=== PATIENT | male | born 1990 | race Caucasian/White ===

== ENCOUNTER 2021-01-24 14:13 | Emergency (ER) | payer SELFPAY ==
[2021-01-24 14:49] VITALS: BP 115/72; PULSE 81; RESP 17; TEMP 36.8; O2SAT 95; BMI 31.2
--- NOTE | 2021-01-24 16:15 | ED_ITS ---
HPI - Back Pain/Injury General: Chief Complaint: Back Pain/Injury Stated Complaint: BACK PAIN WITH SPASM DOWN LEGS Time Seen by Provider: 01/24/21 14:58 History of Present Illness: HPI Narrative: Patient with longstanding history of back pain per. Patient had back pain this time for greater than 4 weeks and been off work. Patient states he is having spasms when he walks. Hurts to get up and out of chair. MD elicited complaint: back pain Pertinent past history: prior back pain Onset (ago): week(s) Timing: constant Severity: moderate Similar Symptoms Previously: Yes Quality: aching Location: lumbar spine Radiation: buttocks Exacerbating factors: movement, sitting upright and lifting Relieving factors: immobilization Context: while lifting, turning/twisting and bending Associated symptoms: Reports no associated symptoms; Deny abdominal pain, chills, fever(s), nausea or vomiting Treatments prior to arrival: NSAIDS Review of Systems Const: Denies: fever(s), chills or body aches Eyes: Denies: change in vision or blurry vision ENMT: Denies: throat pain or nasal congestion Card: Denies: chest pain or dyspnea on exertion Resp: Denies: dyspnea, productive cough or non-productive cough GI: Denies: abdominal pain, nausea or vomiting : Denies: difficulty urinating Musc: Reports: back pain, limited range of motion and muscle cramps; Denies: extremity pain Skin/Breast: Denies: rash Neuro: Denies: headache(s) Psych: Denies: anxiety or depression Kingsley/Lymph: Denies: easy bruising Physical Exam Const: COMMON NORMALS: no acute distress, average body habitus and patient oriented x3 HENMT: COMMON NORMALS: normocephalic HEAD & SCALP: normal to inspection and normocephalic FACE & SINUS: normal facial exam Eye: COMMON NORMALS: conjunctivae normal GENERAL EYE: appearance normal, both eyes and all related structures CONJUNCTIVA: Yes conjunctivae normal Neck/C-Spine: COMMON NORMALS: no JVD Chest: COMMONS NORMALS: normal inspection of the chest Resp: COMMON NORMALS: normal respiratory effort Cardio: COMMON NORMALS: no JVD, regular rate and regular rhythm RATE: regular rate RHYTHM: regular rhythm GI: COMMON NORMALS: Normal to inspection, nondistended, normoactive bowel sounds present Back/Pelvis: LUMBAR SPINE/LOWER BACK: Yes normal to inspection, Yes lumbar ROM normal, No lumbar spinal tenderness, Yes paraspinal muscle tenderness, Yes straight leg raise positive right and Yes straight leg raise positive left Extremity: COMMON NORMALS: normal to inspection and full ROM Neuro: COMMON NORMALS: patient oriented x3, moves all extremities, no focal motor deficits and no sensory deficits noted Course Vital Signs: Vital signs: Vital Signs Temperature 98.2 F 01/24/21 14:49 Pulse Rate 81 01/24/21 14:49 Respiratory Rate 17 01/24/21 14:49 Blood Pressure 115/72 01/24/21 14:49 Pulse Oximetry 95 01/24/21 14:49 MDM - Back Pain/Injury MDM Narrative: Medical decision making narrative: Most likely bulging lumbar disc, sciatica, lumbar radiculopathy. Patient encouraged follow-up primary care provider seek out possible MRI if no significant provement symptoms. 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
[2021-01-24] MEDS: methylPREDNISolone (DEPO) 80 MG/ML INJ 1 mL IM (16:20)
[2021-01-24] MEDS: ketorolac 60 mg/2 mL INJ IM (16:20)
[2021-01-24 17:26] VITALS: BP 142/79; PULSE 78; RESP 18; O2SAT 96
== END 2021-01-24 17:27 | disposition home or self-care (01) ==
PROVIDERS: Emergency Provider Nurse Practitioner Family; PCP Nurse Practitioner
DX: M54.16 Radiculopathy, lumbar region (principal)
CPT/HCPCS: 96372; 99283; J1040; J1885

== ENCOUNTER 2023-07-11 13:34 | Outpatient (CLI) | payer MEDICAID, SELFPAY ==
--- NOTE | 2023-07-11 13:39 | MR_ITS ---
WS: [id number] MRI LUMBAR SPINE WITH CONTRAST TECHNIQUE: Sagittal T1, T2 and STIR imaging. Axial T1 and T2 imaging. Post gadolinium imaging was obt ained. CLINICAL INFORMATION: M54.16 - Radiculopathy, lumbar region COMPARISON: MRI 2006 FINDINGS: Mild lumbar curve. No acute compression. Degenerative disc disease with endplate degenerative changes worse at L3-L4 L4-L5. Small disc herniations L3-L4 L4-L5. A few tiny disc protrusions in the cervica l spine on reproduction order processor imaging at C4-C5 and C5-C6. L1-L2: Mild annular bulging. Moderate facet arthropathy. Spinal canal and foramen are patent. L2-L3: Mild annular bulging with a shallow LEFT paracentral protrusion. Mild central canal stenosis. Impingement traversing LEFT L3 nerve root in the subarticular recess. Moderate facet arthropathy. Sma ll annular fissure. Mild LEFT and no significant RIGHT foraminal narrowing. L3-L4: Mild annular bulging with a shallow central protrusion. Mild central canal stenosis. Impingeme nt traversing L4 nerve roots bilaterally. Moderate facet arthropathy. Mild bilateral foraminal narrow ing. L4-L5: RIGHT paracentral disc protrusion with slight inferior herniation of disc material. Impingemen t traversing RIGHT L5 nerve root in the subarticular recess. Mild central canal stenosis. Foramen are patent. Moderate facet arthropathy. L5-S1: L5 is partially sacralized. No significant disc bulging. Mild to moderate facet arthropathy. T iny LEFT eccentric annular fissure. Spinal canal and foramen are patent. Visualized pelvic bony structures: Normal. Paravertebral soft tissues: Normal. No abnormal gadolinium enhancement. IMPRESSION: 1. Mild lumbar curve. No acute compression. L5 is partially sacralized. 2. RIGHT paracentral disc protrusion L4-5 with slight inferior disc herniation. Impingement traversi ng RIGHT L5 nerve root in the subarticular recess. Mild central canal stenosis. 3. Central disc protrusion L3-4 with slight inferior herniation of disc material. Impingement mansoor sing L4 nerve roots bilaterally with mild central canal stenosis. 4. LEFT subarticular protrusion L2-3 impinges the traversing LEFT L3 nerve root with mild LEFT ivania inal narrowing. Small annular fissure at this level. 5. Moderate facet arthropathy L2-L4.
[2023-07-11] MEDS: gadobenate dimeglumine 20 mL vial IV (14:16)
== END 2023-07-11 13:35 | disposition home or self-care (01) ==
LOC: RAD 13:35
PROVIDERS: PCP Family Medicine; Visit Provider Family Medicine
DX: M51.16 Intervertebral disc disorders with radiculopathy, lumbar region (principal)
CPT/HCPCS: 72158; A9577

== ENCOUNTER → 2023-08-05 14:29 | Outpatient (BNVA) | payer MEDICAID, SELFPAY | PROVIDERS: PCP Family Medicine; Visit Provider Orthopaedic Surgery | DX: M54.9 Dorsalgia, unspecified (principal); M48.062 Spinal stenosis, lumbar region with neurogenic claudication | CPT/HCPCS: 36415; 72100; 80053; 81001; 85025 ==

== ENCOUNTER → 2023-08-12 14:29 | Outpatient (BNVA) | payer MEDICAID, SELFPAY | PROVIDERS: PCP Family Medicine; Visit Provider Family Medicine | DX: Z01.818 Encounter for other preprocedural examination (principal) | CPT/HCPCS: 81003; 87086 ==

== ENCOUNTER 2023-08-19 08:24 | Emergency (ER) | payer MEDICAID, SELFPAY ==
[2023-08-19 08:37] VITALS: BP 146/87; PULSE 85; RESP 20; TEMP 36.7; O2SAT 95
[2023-08-19 08:45] VITALS: BP 137/91; PULSE 87; RESP 16; O2SAT 92
--- NOTE | 2023-08-19 09:04 | ED_ITS ---
HPI - Back Pain/Injury General: Chief Complaint: Back Pain/Injury Stated Complaint: back pain Time Seen by Provider: 08/19/23 08:25 Source: patient Mode of arrival: ambulatory Limitations: no limitations History of Present Illness: Patient is a 33-year-old male here for complaints of acute on chronic back pain. Patient states he has had back pain for many many years. He has recently seen Dr. Cisneros through pain management and failed injections. He has not with Dr. Givens and plan is for surgery next Friday. Patient states 3 days ago he was mowing the yard and afterwards felt like he had aggravated his chronic back pain. He states he takes gabapentin and meloxicam daily but these are not controlling his symptoms. Pain is radiating down both legs but mainly his right side which he states is chronic. He had an MRI of his lumbar spine last month which showed: 1. Mild lumbar curve. No acute compress ion. L5 is partially sacralized. 2. RIGHT paracentral disc protrusion L4 -5 with slight inferior disc herniation. Impingement traversing RIGHT L5 nerve root in the subarticular recess. Mild central canal stenosis. 3. Central disc protrusion L3-4 with sl ight inferior herniation of disc material. Impingement traversing L4 nerve roots bilaterally with mild central canal stenosis. 4. LEFT subarticular protrusion L2-3 im pinges the traversing LEFT L3 nerve root with mild LEFT foraminal narrowing. Small annular fissure at this level. 5. Moderate facet arthropathy L2-L4. MD elicited complaint: back pain Pertinent past history: prior back pain Onset (ago): year(s) Timing: constant Severity: severe Similar Symptoms Previously: Yes Location: lumbar spine Radiation: right leg below the knee Exacerbating factors: movement and walking Relieving factors: none Context: other (after mowing yard) Associated symptoms: Reports difficulty walking; Deny dysuria, fever(s) or hematuria Treatments prior to arrival: other (gabapentin, meloxicam) Work related injury: No Review of Systems Const: Denies: fever(s) : Denies: flank pain, dysuria or hematuria Musc: Reports: back pain; Denies: neck pain, extremity swelling, joint pain or joint swelling Neuro: Reports: numbness in extremities and difficulty walking; Denies: headache(s) or weakness in extremities Physical Exam Const: COMMON NORMALS: average body habitus, patient oriented x3, no limitations, healthy appearing, alert and well nourished GENERAL APPEARANCE: cooperative and in distress (appears uncomfortable secondary to pain) ORIENTATION/CONSCIOUSNESS: Yes awake, Yes oriented to person, Yes oriented to place and Yes oriented to time Resp: COMMON NORMALS: normal respiratory effort and clear to auscultation bilaterally AUSCULTATION: clear to auscultation bilaterally Cardio: COMMON NORMALS: regular rate and regular rhythm RATE: regular rate RHYTHM: regular rhythm GI: COMMON NORMALS: Normal to inspection, nondistended, normoactive bowel sounds present, Soft to palpation, non-tender and no masses PALPATION: Yes Soft to palpation : COMMON NORMALS: Yes no CVA tenderness BLADDER/KIDNEY EXAM: Yes no CVA tenderness Back/Pelvis: COMMON NORMALS: no CVA tenderness THORACIC SPINE/UPPER BACK: No thoracic spinal tenderness, No paraspinal muscle tenderness and No paraspinal muscle spasm LUMBAR SPINE/LOWER BACK: Yes ROM limited, Yes lumbar spinal tenderness and No paraspinal muscle spasm PELVIS: Yes buttocks normal SACRUM: no tenderness COCCYX: no tenderness Extremity: COMMON NORMALS: full ROM, capillary refill normal, no clubbing, cyanosis or edema, no calf tenderness and no pedal edema GENERAL: Yes normal exam except as noted Neuro: COMMON NORMALS: patient oriented x3, moves all extremities, no focal motor deficits and no sensory deficits noted SENSORIUM/ORIENTATION: Yes alert, Yes oriented to person, Yes oriented to place and Yes oriented to time Course Vital Signs: Vital signs: Vital Signs Temperature 98.1 F 08/19/23 08:37 Pulse Rate 81 08/19/23 11:13 Respiratory Rate 20 H 08/19/23 11:13 Blood Pressure 112/80 08/19/23 11:13 Pulse Oximetry 94 08/19/23 11:13 Oxygen Delivery Me thod Room Air 08/19/23 08:45 MDM - Back Pain/Injury Medical Decision Making Patient here for acute on chronic back pain. He is scheduled for surgery with Dr. Givens next Friday. Patient feels better after IM meds given here. Patient will be placed on steroids, muscle relaxers, and given a small amount of pain meds to go home with. Return to ED precautions given. Differential Diagnosis Likely lumbar radiculopathy Medical Records I reviewed the patient's medical records. No radiology studies performed this visit Discharge Plan Discharge Patient Disposition: Home Clinical Impression: Lumbar disc disease with radiculopathy, Lumbar stenosis with neurogenic claudication Condition: Stable Prescriptions: New methocarbamol 500 mg tablet 1,000 mg PO Q8H Qty: 30 0RF tramadol 50 mg tablet 50 mg PO Q6H PRN (Reason: pain) Qty: 10 0RF Medrol ([place]) 4 mg tablets,dose pack See Rx Instructions .ROUTE .COMPLEX Qty: 21 0RF Rx Instructions: orally per package directions No Action gabapentin 300 mg capsule 300 mg PO TID Qty: 90 0RF meloxicam 15 mg tablet 15 mg PO DAILY Qty: 30 0RF Rx Instructions: Not to be taken with other NSAIDS Discharge Orders: Discharge ED (Routine); Ordered 08/19/23 Ordered By: Isidra Gauthier Referrals: Jose Madsen MD [Primary Care Provider] - Patient Instructions: Opioid Safety, Pain Management Coding Level of Care Code ED Core Drilling Supervisor for Sarita Villarreal
[2023-08-19] MEDS: orphenadrine 30 mg/mL Inj 2 mL 60 MG IM (09:18)
[2023-08-19] MEDS: ketorolac 60 mg/2 mL INJ IM (09:20)
[2023-08-19] MEDS: dexamethasone 10 mg/mL INJ IM (09:21)
[2023-08-19 10:11] VITALS: RESP 20
[2023-08-19] MEDS: morphine 4 mg/mL SDV 1 mL IM (10:11)
[2023-08-19 10:37] VITALS: BP 120/83; PULSE 68; O2SAT 92
[2023-08-19 11:01] VITALS: RESP 20
[2023-08-19] MEDS: HYDROmorphone 1 mg/mL INJ 1 mL 0.5 MG IM (11:01)
[2023-08-19 11:13] VITALS: BP 112/80; PULSE 81; RESP 20; O2SAT 94
== END 2023-08-19 11:15 | disposition home or self-care (01) ==
PROVIDERS: Emergency Provider Physician Assistant; PCP Family Medicine
DX: M51.16 Intervertebral disc disorders with radiculopathy, lumbar region (principal); M48.062 Spinal stenosis, lumbar region with neurogenic claudication
CPT/HCPCS: 96372; 99284; J1100; J1170; J1885; J2270; J2360

== ENCOUNTER → 2023-08-21 14:42 | Outpatient (BNVA) | payer MEDICAID, SELFPAY | PROVIDERS: PCP Family Medicine; Visit Provider Orthopaedic Surgery | DX: M48.062 Spinal stenosis, lumbar region with neurogenic claudication (principal) | CPT/HCPCS: 72100 ==

== ENCOUNTER 2023-09-05 05:56 | Day surgery (SDC) | payer MEDICAID, SELFPAY ==
[2023-09-05] VITALS (15 sets, daily range): BP systolic 133–165; BP diastolic 74–117; PULSE 69–91; RESP 13–25; TEMP 36.1–36.8; O2SAT 93–98; BMI 27.8
--- NOTE | 2023-09-05 06:34 | W.PM.OPSUD ---
Surgery/Procedure H&P Update DATE OF PROCEDURE: September 05, 2023 DATE H&P PERFORMED: 08/12/23 H&P UPDATE INFORMATION: I have reviewed H&P completed within last 30 days, I have examined patient prior to procedure and No changes to prior documentation PREOP DIAGNOSIS: Lumbar stenosis with neurogenic claudication PLANNED PROCEDURE: Operation Date: 09/05/23 08:40 Proposed Procedures p Lumbar Spine Decompression Lumbar Decompression(Not Applicable) - Eliud Givens DO
--- NOTE | 2023-09-05 06:41 | ANES.PREANE2 ---
Pre-Anesthetic Assessment Height/Weight: Height 1.8 m Weight 90.718 kg Temp Pulse Resp BP Pulse Ox O2 Del Method 97.8 F 74 18 133/83 98 Room Air 09/05/23 06:21 09/05/23 06:21 09/05/23 06:21 09/05/23 06:21 09/05/23 06:21 09/05/23 06:21 Preop Diagnosis: Lumbar stenosis with neurogenic claudication Operation Date: 09/05/23 08:40 Proposed Procedures p Lumbar Spine Decompression Lumbar Decompression(Not Applicable) - Eliud Givens, DO Familial anesthetic complications: None Was Beta Albaro taken within 24 hours: N/A Was Clonidine taken within 24 hours: N/A Last intake: Intake Last Liquid Date 09/04/23 Last Liquid Time 21:30 Last Solid Date 09/04/23 Last Solid Time 21:30 Social Tobacco (vape) and No alcohol Exam alert, oriented x 3, clear to auscultation bilaterally and regular rate & rhythm Airway Mallampati: Class II Dentition: full Anesthetic Plan ASA status: 2 Anesthesia: General Risk of > 500 ml blood loss (7ml/kg in children): No Medications/Allergies Home Medications Medication Instructions Recorded Confirmed Last Taken Type gabapentin 300 mg capsule 300 mg PO TID pain #90 caps 07/29/23 09/05/23 09/05/23 Rx meloxicam 15 mg tablet 15 mg PO DAILY pain #30 tabs 07/29/23 09/05/23 1 Month Ago Rx ~08/04/23 methocarbamol 500 mg tablet 1,000 mg (2 x 500 mg) PO Q8H #30 08/19/23 09/05/23 09/05/23 Rx tabs wheel cahir #1 ea 08/22/23 09/05/23 09/05/23 Rx hydrocodone 10 mg-acetaminophen 1 tab PO DAILY 09/04/23 09/05/23 09/05/23 History 325 mg tablet Allergies Allergy/AdvReac Type Severity Reaction Status Date / Time No Known Allergies Allergy Verified 09/04/23 14:58 Data Anesthesia Cardiac Studies: No Data to Display
[2023-09-05] MEDS: ceFAZolin 2,000 MG in sodium chloride 0.9% (plus) 50 ML 100 MG IV (06:59)
[2023-09-05] MEDS: sodium chloride 0.9% 1,000 ML 30 ML IV (07:00)
--- NOTE | 2023-09-05 07:30 | XR_ITS ---
WS: [id number] C-ARM RADIOGRAPHS LUMBAR SPINE; 5 IMAGES HISTORY: C-ARM PICS DONE IN OR COMPARISON: None available. Intraoperative imaging during spinal decompression surgery. Decompressive markers noted in the lower lumbar spine. Not all images are lateralized. IMPRESSION: Intraoperative imaging during spinal decompression surgery.
[2023-09-05] MEDS: lidocaine-epi 1% 20 mL INJ INJECTION (07:57)
--- NOTE | 2023-09-05 09:05 | PM.OP ---
Operative Report Date of procedure: September 05, 2023 Pre-op diagnosis: Lumbar stenosis with neurogenic claudication L4-5 herniated disc with radiculopathy Post-op diagnosis: same Procedure done: 1. L3-4 laminectomy with partial facetectomy 2. L4-5 laminectomy with partial facetectomy and discectomy 3. L5-S1 laminectomy with partial facetectomy Surgeon: Eliud Givens DO Estimated blood loss (mL): 50 Procedure: 1. L3-4 laminectomy with partial facetectomy 2. L4-5 laminectomy with partial facetectomy and discectomy 3. L5-S1 laminectomy with partial facetectomy Patient is brought to the operative suite. After undergoing anesthesia they are placed in the prone position. All areas of impingement are well padded. Patient is then prepped and draped in the normal sterile fashion. A skin incision is made over the L3/4 level. This is confirmed under c-arm guidance. A series of dilators are passed and the tubular retractor is docked on the L3 lamina. A bovie is used to clear the soft tissue off the lamina and the L 3/4 facet joint. A high speed rebekah is then used to perform the laminectomy and take down the medial aspect of the L 3/4 facet joint. A kerrison rongeure was then used to take down the remaining lamina and smooth the edge of the laminectomy up to the point where the ligamentum flavum attaches. Attention was then brought to the medial aspect of the facet joint. The remaining medial aspect of the superior and inferior aspect of the facet joint were taken down with the kerrison from the pedicle of L3 to L 4. The facet joint had significant hypertrophy. Attention was then brought to the Ligamentum Flavum. The ligament was taken down from the lamina of L3 to L4 and out medially to the remaining facet joint. The ligament was thick. The dura was then exposed. The dura was in good repair. The L3 nerve was then traced with a curette out the L3/4 foramen and found to be adequately decompressed. The L4 nerve was traced with a curette around the L4 pedicle. The lateral recess was opened with a kerrison helping to further decompress the L4 nerve. Wound is then irrigated copiously with saline and surgiflo is used to stop any bleeding. The tubular retractor is removed and the A skin incision is made over the L4/5 level. This is confirmed under c-arm guidance. A series of dilators are passed and the tubular retractor is docked on the L4 lamina. A bovie is used to clear the soft tissue off the lamina and the L 4/5 facet joint. A high speed rebekah is then used to perform the laminectomy and take down the medial aspect of the L 4/5 facet joint. A kerrison rongeure was then used to take down the remaining lamina and smooth the edge of the laminectomy up to the point where the ligamentum flavum attaches. Attention was then brought to the medial aspect of the facet joint. The remaining medial aspect of the superior and inferior aspect of the facet joint were taken down with the kerrison from the pedicle of L4 to L 5. The facet joint had significant hypertrophy. Attention was then brought to the Ligamentum Flavum. The ligament was taken down from the lamina of L4 to L5 and out medially to the remaining facet joint. The ligament was thick. The dura was then exposed. The dura was in good repair. The L5 nerve root was retracted. A disc herniation was identified. Sharp knife was used to cut through the outer membrane where the extruded disc was. Once was cut the disc herniated out through this cut curved curette was used to freed up and then the micropituitary was used to take a large disc fragment out. The L4 nerve was then traced with a curette out the L4/5 foramen and found to be adequately decompressed. The L5 nerve was traced with a curette around the L5 pedicle. The lateral recess was opened with a kerrison helping to further decompress the L5 nerve. Wound is then irrigated copiously with saline and surgiflo is used to stop any bleeding. The tubular retractor is removed and the A skin incision is made over the L5/S1 level. This is confirmed under c-arm guidance. A series of dilators are passed and the tubular retractor is docked on the L5 lamina. A bovie is used to clear the soft tissue off the lamina and the L 5/S1 facet joint. A high speed rebekah is then used to perform the laminectomy and take down the medial aspect of the L 5/S1 facet joint. A kerrison rongeure was then used to take down the remaining lamina and smooth the edge of the laminectomy up to the point where the ligamentum flavum attaches. Attention was then brought to the medial aspect of the facet joint. The remaining medial aspect of the superior and inferior aspect of the facet joint were taken down with the kerrison from the pedicle of L5 to S1. The facet joint had significant hypertrophy. Attention was then brought to the Ligamentum Flavum. The ligament was taken down from the lamina of L5 to S1 and out medially to the remaining facet joint. The ligament was thick. The dura was then exposed. The dura was in good repair. The L5 nerve was then traced with a curette out the L5/S1 foramen and found to be adequately decompressed. The S1 nerve was traced with a curette around the S1 pedicle. The lateral recess was opened with a kerrison helping to further decompress the S1 nerve. Wound is then irrigated copiously with saline and surgiflo is used to stop any bleeding. The tubular retractor is removed and the wound is closed with vicryl and monocryl suture. Glue is then used to protect the wound. A sterile dressing is then placed. Patient was then placed in the supine position and transferred to the PACU in stable condition.
[2023-09-05] MEDS: fentaNYL 50 mcg/mL INJ 2mL IVP ×2 (09:10→09:18)
[2023-09-05] MEDS: HYDROmorphone 1 mg/mL INJ 1 mL 0.5 MG IVP (09:24)
--- NOTE | 2023-09-05 09:29 | PC.NURSE ---
Dr Stovall ordered 10 mg hydralizine IVP x 1 for high BP 164/107
[2023-09-05] MEDS: hyDRALAzine 20 mg/mL INJ 1 mL 10 MG IVP (09:30)
[2023-09-05] MEDS: HYDROcodone-acetaminophen 10-325 mg Tablet 1 TAB PO (10:07)
--- NOTE | 2023-09-05 10:45 | ANE.PACU2 ---
Inpatient post-anesthesia follow up: Airway intact: Yes Vital signs: Temperature 98.2 F Pulse Rate 69 Respiratory Rate 18 Blood Pressure 145/102 Pulse Oximetry 96 Oxygen Delivery Me thod Room Air Oxygen Flow Rate Fraction of Inspir ed Oxygen Hydration adequate: Yes Nausea and vomiting: No Pain level: 1 Mental status: Baseline
== END 2023-09-05 10:46 | disposition home or self-care (01) ==
PROVIDERS: PCP Family Medicine; Visit Provider Orthopaedic Surgery
PROC: (CPT 63005; principal; 2023-09-05 08:30)
DX: M48.062 Spinal stenosis, lumbar region with neurogenic claudication (principal); M54.16 Radiculopathy, lumbar region; F17.290 Nicotine dependence, other tobacco product, uncomplicated
CPT/HCPCS: 63047; 63048 ×2; 72100; 76000; J0330; J0360; J0690; J1100; J1170; J2250; J2405; J2704; J2710; J3010; J3490; J7030

== ENCOUNTER 2023-12-31 11:00 | Outpatient (CLI) | payer MEDICAID, SELFPAY ==
--- NOTE | 2023-12-31 11:09 | MR_ITS ---
WS: [id number] MRI CERVICAL SPINE NONCONTRAST TECHNIQUE: Sagittal T1, T2 and STIR imaging. Axial T2, gradient, and fiesta imaging. CLINICAL INFORMATION: CERVICAL RADICULOPATHY COMPARISON: None. FINDINGS: Straightening with slight reversal of the normal cervical lordosis. Disc bulging worse at C5-6. Cord signal is normal. C2-C3: Normal. C3-C4: Mild facet arthropathy. Spinal canal and foramen are patent. C4-C5: Mild disc bulging. Mild facet arthropathy. Spinal canal and foramen are patent. C5-C6: LEFT eccentric disc osteophyte complex with moderate to severe LEFT foraminal narrowing. Mild central canal stenosis with slight contact of the LEFT ventral cervical cord. RIGHT foramen is patent . Mild facet arthropathy. C6-C7: Mild LEFT and no significant RIGHT foraminal narrowing. Spinal canal is patent. Mild facet art hropathy. C7-T1: Normal. Visualized brain stem structures: Normal. Prevertebral soft tissues: Normal. MR/MR cervical spin wo con* [id number] IMPRESSION: 1. Straightening with slight reversal of the normal cervical lordosis. 2. LEFT eccentric disc osteophyte complex C5-6 with mild central canal stenosi s and severe LEFT bony foraminal narrowing. 3. Mild LEFT C6-7 bony foraminal narrowing.
== END 2023-12-31 11:01 | disposition home or self-care (01) ==
PROVIDERS: PCP Family Medicine; Visit Provider Family Medicine
DX: M47.892 Other spondylosis, cervical region (principal); M25.78 Osteophyte, vertebrae; M48.02 Spinal stenosis, cervical region
CPT/HCPCS: 72141

== ENCOUNTER → 2024-03-04 10:58 | Outpatient (BNVA) | payer MEDICAID, SELFPAY | PROVIDERS: PCP Family Medicine; Visit Provider Orthopaedic Surgery | DX: M54.9 Dorsalgia, unspecified (principal); Z98.890 Other specified postprocedural states | CPT/HCPCS: 72100 ==

== ENCOUNTER 2024-03-09 14:43 | Observation (INO) | payer MEDICAID, SELFPAY ==
[2024-03-09] VITALS (9 sets, daily range): BP systolic 125–181; BP diastolic 65–104; PULSE 74–100; RESP 16; TEMP 36.8; O2SAT 92–99; BMI 30.2
--- NOTE | 2024-03-09 15:00 | CT_ITS ---
WS: [id number] CT HEAD NONCONTRAST HISTORY: Symptoms of acute stroke TECHNIQUE: Contiguous axial imaging performed through the brain. Bone and soft tissue windows. Sagitt al and coronal reformats reviewed. All CT scans at [facility] use at least one of these dose optimization techniques: automated exposure control; mA and/or kV adjustment per patient size (includ es targeted exams where dose is matched to clinical indication); or iterative reconstruction. DLP: 1010.88 mGy COMPARISON: 08/24/2013 No acute intracranial hemorrhage, midline shift or mass effect. No atrophy or prior infarcts or herniation. Ventricles: Ventricles are slitlike but similar to prior CT examinations. Mild increased attenuation along the RIGHT tentorium was also present on prior studies. Paranasal sinuses: As visualized are clear. Mastoid air cells: Well pneumatized. Calvarium and scalp: Skull is intact with no soft tissue edema or swelling. CT/CT head thrombolytic [id number] IMPRESSION: Negative head CT. Similar noncontrast head CT since 08/24/2013 and 11/29/2012. Notified Leslie Barrera MD at 03/09/2024 3:16 PM.
[2024-03-09 15:13] LABS: Glucose Point of Care 108 mg/dL (70-110)
--- NOTE | 2024-03-09 15:25 | CTR_ITS ---
PROCEDURE INFORMATION: Exam: CTA Head With Contrast, Arteriography Exam date and time: 03/09/2024 3:34 PM Age: 33 years old Clinical indication: Other: CVA TECHNIQUE: Imaging protocol: Computed tomographic angiography of the head with contrast. Exam focused on the arteries. 3D rendering (Not supervised by radiologist): MIP and/or 3D reconstructed images were created by the technologist. Radiation optimization: All CT scans at this facility use at least one of these dose optimization techniques: automated exposure control; mA and/or kV adjustment per patient size (includes targeted exams where dose is matched to clinical indication); or iterative reconstruction. Contrast material: OMNI 350; Contrast volume: 100 ml; Contrast route: INTRAVENOUS (IV); COMPARISON: CT head thrombolytic [id number] 03/09/2024 3:03 PM RADIATION DOSE METRICS: Total DLP (mGy-cm): 577 FINDINGS: ANTERIOR CIRCULATION: Right internal carotid artery: No significant stenosis or aneurysm is seen involving the petrous, cavernous, or supraclinoid right internal caroid artery. Right middle cerebral artery: No occlusion or significant stenosis. No aneurysm. Right anterior cerebral artery: No occlusion or significant stenosis. No aneurysm. Left internal carotid artery: No significant stenosis or aneurysm is seen involving the petrous, cavernous, or supraclinoid left internal caroid artery. Left middle cerebral artery: No occlusion or significant stenosis. No aneurysm. Left anterior cerebral artery: No occlusion or significant stenosis. No aneurysm. POSTERIOR CIRCULATION: Right vertebral artery: Intradural right vertebral artery demonstrates no occlusion or significant stenosis. No aneurysm. Left vertebral artery: Intradural left vertebral artery demonstrates no occlusion or significant stenosis. No aneurysm. Basilar artery: No occlusion or significant stenosis. No aneurysm. Right posterior cerebral artery: No occlusion or significant stenosis. No aneurysm. Left posterior cerebral artery: No occlusion or significant stenosis. No aneurysm. PROCEDURE INFORMATION: Exam: CTA Neck With Contrast Exam date and time: 03/09/2024 3:34 PM Age: 33 years old Clinical indication: Other: CVA TECHNIQUE: Imaging protocol: Computed tomographic angiography of the neck with contrast. Exam focused on the cervical segments of the vasculature. 3D rendering (Not supervised by radiologist): MIP and/or 3D reconstructed images were created by the technologist. Radiation optimization: All CT scans at this facility use at least one of these dose optimization techniques: automated exposure control; mA and/or kV adjustment per patient size (includes targeted exams where dose is matched to clinical indication); or iterative reconstruction. Contrast material: OMNI 350; Contrast volume: 100 ml; Contrast route: INTRAVENOUS (IV); COMPARISON: MR cervical spin wo con* [id number] 12/31/2023 11:15 AM RADIATION DOSE METRICS: Total DLP (mGy-cm): 577 FINDINGS: Right common carotid artery: No stenosis. No dissection or occlusion. Right internal carotid artery: No significant stenosis seen by NASCET criteria. No dissection or occlusion. Right external carotid artery: No occlusion or stenosis of the origin. Left common carotid artery: No stenosis. No dissection or occlusion. Left internal carotid artery: No significant stenosis seen by NASCET criteria. No dissection or occlusion. Left external carotid artery: No occlusion or stenosis of the origin. Right vertebral artery: No cervical vertebral artery stenosis. No dissection or occlusion. Left vertebral artery: No cervical vertebral artery stenosis. No dissection or occlusion. Soft tissues: Visualized soft tissues of the neck are unremarkable. Bones/joints: No acute bony abnormality. CT/CT angio headneck* [id number] IMPRESSION: No intracranial large vessel arterial stenosis or occlusion. IMPRESSION: No significant cervical arterial stenosis or occlusion. REFERENCES: NASCET CRITERIA. The degree of stenosis in the cervical segment of the internal carotid artery is based on NASCET criteria. Normal is no stenosis. Mild is less than 50% stenosis. Moderate is 50-69% stenosis. Severe is 70% to 99% stenosis. Total occlusion is no detectable patent lumen.
--- NOTE | 2024-03-09 15:27 | ED_ITS ---
HPI - Neuro Symptoms/Deficit 2 General: Chief Complaint: Neuro Symptoms/Deficit Stated Complaint: Stroke like symptoms Time Seen by Provider: 03/09/24 15:00 Source: patient Mode of arrival: ambulatory Limitations: no limitations History of Present Illness: 33-year-old male states that he had some tongue numbness 2 days ago since resolved he states then he woke up this morning and noticed some drooping of his right face and drooling. He denies any other weakness denies any slurred speech last known normal was last night. Denies any headache or fever Associated symptoms: Deny chest pain, headache(s), nausea or vomiting Related Data Previous Rx's Medication Instructions Recorded gabapentin 300 mg capsule 300 mg PO TID pain #90 caps 07/29/23 meloxicam 15 mg tablet 15 mg PO DAILY pain #30 tabs 07/29/23 wheel cahir #1 ea 08/22/23 naloxone 4 mg/actuation nasal 4 mg intranasal Q3M PRN opioid 09/15/23 spray (Narcan) overdose #2 ea cyclobenzaprine 5 mg tablet 5 mg PO TID PRN muscle spasm 30 02/26/24 days #90 tabs hydrocodone 10 mg-acetaminophen 1 tab PO Q8H PRN pain 7 days #21 02/26/24 325 mg tablet tabs Back Brace #1 ea 03/04/24 Allergies Allergy/AdvReac Type Severity Reaction Status Date / Time No Known Allergies Allergy Verified 03/04/24 10:56 Review of Systems 2 Const: Denies: fever(s), chills, body aches or change in appetite Eyes: Denies: blurry vision or eye discomfort ENMT: Denies: throat pain or dental pain Card: Denies: chest pain Resp: Denies: dyspnea GI: Denies: abdominal pain, nausea, vomiting or diarrhea Musc: Denies: neck pain or back pain Skin/Breast: Denies: rash Neuro: Denies: headache(s) PFSH ED 2 PFSH: Social History Smoking and tobacco/nicotine status: unknown if used tobacco/nicotine NIH stroke score 2 NIHSS: Level Of Consciousness - 1a: 0 Level Of Consciousness Questions - 1b: Both Correct Level Of Consciousness Commands - 1c: Both Correct Best Gaze - 2: Normal Visual Herrera - 3: No Visual Loss Facial Palsy - 4: P artial Paralysis Motor Arm Right - 5: No Drift Motor Arm Left - 5: No Drift Motor Leg Right - 6: No Drift Motor Leg Left - 6: No Drift Limb Ataxia - 7: Absent Sensory - 8: Normal Best Language - 9: No Aphasia D ysarthia - 10: Normal Extinction And Inattention - 11: 0 Score: Total Score: 2 Physical Exam 2 Const: COMMON NORMALS: no acute distress, patient oriented x3 and healthy appearing HENMT: COMMON NORMALS: normocephalic and atraumatic HEAD & SCALP: n ormocephalic and atraumatic Eye: COMMON NORMALS: Equal, round and reactive pupils present and EOMs intact bilaterally PUPIL: Yes Equal, round and reactive pupils present Neck/C-Spine: COMMON NORMALS: full ROM and supple Chest: COMMONS NORMALS: normal inspection of the chest Resp: COMMON NORMALS: normal respiratory effort, No retractions, No use of accessory muscles and clear to auscultation bilaterally AUSCULTATION: clear to auscultation bilaterally Cardio: COMMON NORMALS: regular rate, regular rhythm and No murmurs present (Cardio) RATE: regular rate RHYTHM: regular rhythm Extremity: COMMON NORMALS: normal to inspection and full ROM Neuro: COMMON NORMALS: patient oriented x3, moves all extremities and no focal motor deficits SPEECH: speech normal GAIT: Yes Normal gait present M OTOR EXAM: 5/5 motor strength present throughout OTHER: Right-sided facial droop Psych: COMMON NORMALS: mental status grossly normal, Normal thought process present and cooperative THOUGHT PROCESS: Normal thought process present Skin: COMMON NORMALS: no rashes or lesions noted and no wounds GENERAL SKIN EXAM: no rashes or lesions noted Course 2 Vital Signs: Vital signs: Vital Signs Temperature 98.3 F 03/09/24 14:56 Pulse Rate 100 03/09/24 14:56 Respiratory Rate 16 03/09/24 14:56 Blood Pressure 181/95 03/09/24 14:56 Pulse Oximetry 98 03/09/24 14:56 Oxygen Delivery Me thod Room Air 03/09/24 14:56 MDM - Neuro Symptoms/Deficit Medical Decision Making Patient presents here with right-sided facial droop 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 Medical Records I reviewed the patient's medical records. Lab Data I reviewed the patient's lab results. 03/09/24 15:26 03/09/24 15: Radiology Impressions Head CT 03/09/24 15:00 IMPRESSION: Negative head CT. Similar noncontrast head CT since 08/24/2013 and 11/29/2012. Notified Leslie Barrera MD at 03/09/2024 3:16 PM. Head/Neck CTA 03/09/24 15:25 IMPRESSION: No intracranial large vessel arterial stenosis or occlusion. IMPRESSION: No significant cervical arterial stenosis or occlusion. REFERENCES: NASCET CRITERIA. The degree of stenosis in the cervical segment of the internal carotid artery is based on NASCET criteria. Normal is no stenosis. Mild is less than 50% stenosis. Moderate is 50-69% stenosis. Severe is 70% to 99% stenosis. Total occlusion is no detectable patent lumen. Laboratory Results WBC 10.44 10^3/uL (3.29-11.43) 03/09/24: RBC 5.66 10^6/uL (3.85-5.65) H 03/09/24 15: Hgb 17.00 g/dL (11.27-16.99) H 03/09/24: Hct 50.8 % (37-53) 03/09/24: MCV 89.8 fl (82-101) 03/09/24: MCH 30.0 pg (27-33) 03/09/24 15: MCHC 33.5 g/dL (30-55) 03/09/24: RDW 13.1 % (12.1-15.1) 03/09/24: Plt Count 280 10^3/cmm (157-399) 03/09/24 15: MPV 8.7 fL (7.4-10.4) 03/09/24: Neut % (Auto) 67.9 % 03/09/24: Lymph % (Auto) 22.5 % 03/09/24 15: Isabela % (Auto) 7.0 % 03/09/24 15: Eos % (Auto) 1.2 % 03/09/24: Baso % (Auto) 0.9 % 03/09/24 15: Neut # (Auto) 7.09 10^3/uL (1.8-7.7) 03/09/24: Lymph # (Auto) 2.4 10^3/uL (0.8-4.8) 03/09/24 15: Isabela # (Auto) 0.7 10^3/uL (0.2-0.9) 03/09/24: Eos # (Auto) 0.1 10^3/uL (0.0-0.8) 03/09/24: Baso # (Auto) 0.1 10^3/uL (0.0-0.1) 03/09/24 15: Nucleated RBC % (auto) 0 % 03/09/24: Nucleated RBCs # 0.0 /100WBC 03/09/24 15: PT 13.00 SECONDS (12.1-14.9) 03/09/24 15: INR 0.96 (0.8-1.2) 03/09/24 15: APTT 28.0 SECONDS (23.9-36.7) 03/09/24 15: Sodium 139 mmol/L (136-145) 03/09/24 15: Potassium 3.7 mmol/L (3.5-5.1) 03/09/24: Chloride 101 mmol/L (98-107) 03/09/24: Carbon Dioxide 28 mmol/L (22-29) 03/09/24 15: Anion Gap 13.7 (5-19) 03/09/24: BUN 16 mg/dL (6-20) 03/09/24 15: Creatinine 0.8 mg/dL (0.7-1.2) 03/09/24 15: GFR Calculation 111.3 mL/min (90-130) 03/09/24 15: Glucose 106 mg/dL (65-115) 03/09/24: POC Glucose 108 mg/dL (70-110) 03/09/24 15:09 Calculated Osmolality 290 mOsm/kg (285-295) 03/09/24 15: Calcium 8.7 mg/dL (8.5-10.5) 03/09/24 15: Total Bilirubin 0.4 mg/dL (0.15-1.2) 03/09/24 15: AST 25 U/L (0-40) 03/09/24 15: ALT 23 U/L (0-41) 03/09/24 15: Alkaline Phosphatase 71 U/L (40-130) 03/09/24 15: Total Protein 7.0 g/dL (6.6-8.7) 03/09/24: Albumin 4.6 g/dL (3.5-5.2) 03/09/24: Globulin 2.4 g/dL (1.3-4.6) 03/09/24 15: Urine Color Yellow (Yellow) 03/09/24 16:20 Urine Appearance Clear (CLEAR) 03/09/24 16:20 Urine pH 7.0 (5-7) 03/09/24 16:20 Ur Specific Rosser 1.028 (1.005-1.030) 03/09/24 16:20 Urine Protein Negative (Negative) 03/09/24 16:20 Urine Glucose (UA) Negative (Normal) 03/09/24 16:20 Urine Ketones Negative (Negative) 03/09/24 16:20 Urine Blood Negative (Negative) 03/09/24 16:20 Urine Nitrate Negative (Negative) 03/09/24 16:20 Urine Bilirubin Negative (Negative) 03/09/24 16:20 Urine Urobilinogen 0.2 mg/dL (Negative) 03/09/24 16:20 Ur Leukocyte Esterase Negative (Negative) 03/09/24 16:20 Urine RBC 0-2 /hpf (0-2) 03/09/24 16:20 Urine WBC 0-5 /hpf (0-5) 03/09/24 16:20 Ur Squamous Epith Cells 0-5 /hpf (0-5) 03/09/24 16:20 Amorphous Sediment Not Reportable 03/09/24 16:20 Urine Bacteria None seen /hpf (NONE) 03/09/24 16:20 Hyaline Casts 0-4 /lpf H 03/09/24 16:20 Urine Opiates Screen Positive ng/mL (Negative) H 03/09/24 16:20 Ur Barbiturates Screen Negative ng/mL (Negative) 03/09/24 16:20 Ur Phencyclidine Scrn Negative ng/mL (Negative) 03/09/24 16:20 Ur Amphetamines Screen Negative ng/mL (Negative) 03/09/24 16:20 U Benzodiazepines Scrn Negative ng/mL (Negative) 03/09/24 16:20 Urine Cocaine Screen Negative ng/mL (Negative) 03/09/24 16:20 U Marijuana (THC) Screen Positive ng/mL (Negative) H 03/09/24 16:20 All radiology interpretation(s) finalized by discharge EKG Data EKG 1: I personally reviewed and interpreted this EKG as follows: EKG interpretation date: 03/09/24 EKG interpretation time: 16:09 Interpretation: nsr hr [address] elevation qrs 91 qtc 389 Discharge Plan Discharge Admit Provider: Madiha Elizabeth Condition: Stable Coding Level of Care Code ED 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
[2024-03-09 15:39] LABS: Basophils # 0.1 10^3/uL (0.0-0.1); Basophils % 0.9 %; Eosinophils # 0.1 10^3/uL (0.0-0.8); Eosinophils % 1.2 %; Hematocrit 50.8 % (37-53); Lymphocytes # 2.4 10^3/uL (0.8-4.8); Lymphocytes % 22.5 %; Mean Corpuscular HGB Conc 33.5 g/dL (30-55); Mean Corpuscular Volume 89.8 fl (82-101); Mean Platelet Volume 8.7 fL (7.4-10.4); Monocytes # 0.7 10^3/uL (0.2-0.9); Neutrophils # 7.09 10^3/uL (1.8-7.7); Neutrophils % 67.9 %; Nucleated Red Blood Cells % 0 %; Platelet Count 280 10^3/cmm (157-399); Red Blood Count 5.66 10^6/uL (3.85-5.65); Red Cell Distribution Width 13.1 % (12.1-15.1); White Blood Count 10.44 10^3/uL (3.29-11.43)
[2024-03-09 15:50] LABS: INR 0.96 (0.8-1.2)
[2024-03-09 15:53] LABS: Alanine Aminotransferase 23 U/L (0-41); Albumin Level 4.6 g/dL (3.5-5.2); Alkaline Phosphatase 71 U/L (40-130); Anion Gap 13.7 (5-19); Aspartate Amino Transferase 25 U/L (0-40); Blood Urea Nitrogen 16 mg/dL (6-20); Calcium 8.7 mg/dL (8.5-10.5); Carbon Dioxide 28 mmol/L (22-29); Chloride 101 mmol/L (98-107); Creatinine Clr Calc Pharmacy 157.0671; Globulin 2.4 g/dL (1.3-4.6); Glomerular Filtration Rate 111.3 mL/min (90-130); Glucose 106 mg/dL (65-115); Osmolality Calculated 290 mOsm/kg (285-295); Potassium 3.7 mmol/L (3.5-5.1); Sodium 139 mmol/L (136-145); Total Bilirubin 0.4 mg/dL (0.15-1.2)
[2024-03-09] MEDS: iohexol 350 mg/mL 500 mL Btl (per mL) IV (15:53)
--- NOTE | 2024-03-09 16:09 | ECG_ITS ---
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 Measurements Intervals [place] Rate: 83 P: 54 CO: 149 QRS: 69 QRSD: 91 T: 44 QT: 349 QTc: 412 Interpretive Statements SINUS RHYTHM Incomplete right bundle branch block POSSIBLE LEFT ATRIAL ENLARGEMENT [-0.1mV P-WAVE IN V1/V2] No previous ECG available for comparison Electronically Signed On 03-10-2024 01:12:55 CDT by Bull Griffin M.D. [email or web address]
[2024-03-09] MEDS: aspirin 81 mg Chew Tablet 324 MG PO (16:16)
[2024-03-09 16:49] LABS: Bilirubin Urine Negative (Negative); Blood Urine Negative (Negative); Glucose Urine UA Negative (Normal); Ketones Urine Negative (Negative); Leukocyte Esterase Urine Negative (Negative); Nitrate Urine Negative (Negative); Protein Urine Negative (Negative); Specific Gravity, Urine 1.028 (1.005-1.030); Urine Appearance Clear (CLEAR); Urine Color Yellow (Yellow); Urobilinogen Urine 0.2 mg/dL (Negative)
[2024-03-09 16:55] LABS: Add Urine Microscopic? YES; Bacteria Urine None Seen /hpf; Hyaline Casts Urine 0-4 /lpf; RBC Urine 0-2 /hpf (0-2); Squamous Epithelial Cell Urine 0-5 /hpf (0-5); WBC Urine 0-5 /hpf (0-5)
[2024-03-09 17:07] LABS: Amphetamines Screen Urine Negative (Negative); Barbiturates Screen Urine Negative (Negative); Benzodiazepines Screen Urine Negative (Negative); Cocaine Screen Urine Negative (Negative); Opiate Screen Urine Positive (Negative); PCP Screen Urine Negative (Negative); THC Screen Urine Positive (Negative)
--- NOTE | 2024-03-09 17:25 | P.HP_ITS ---
Providers/Chief Complaint 2 Admitting Physician: Madiha Elizabeth MD Primary Care Provider: Jose Madsen MD Chief Complaint: Stroke like symptoms History of Present Illness Josue Stovall is a 33 year old male who presented to hospital with chief complaint of right-sided facial droop. Patient is stating that for last 4 days he has been noticing that his tongue was not right and he could feel it, he is not able to describe the weird feeling, today he was not able to take a puff of his cigarette around 7 AM, he felt numb with right-sided facial droop that prompted her visit to the ER in the ER stroke workup was unremarkable, there is concern for Chan's palsy however MRI head has been requested as per [place] stroke evaluation. I will give patient prednisone, patient smokes 1 pack/day, smokes marijuana as well take muscle relaxant for lower back pain along opioids Patient denying, tick bites, stating that he works from his home, he works in his [employer] Review of Systems 2 Const: Denies: fever(s) Eyes: Denies: change in vision ENMT: Denies: throat pain Card: Denies: chest pain Resp: Denies: dyspnea Medications/Allergies Home Medications Medication Instructions Recorded Confirmed Last Taken Type gabapentin 300 mg capsule 300 mg PO TID pain #90 caps 07/29/23 02/26/24 09/05/23 Rx meloxicam 15 mg tablet 15 mg PO DAILY pain #30 tabs 07/29/23 02/26/24 1 Month Ago Rx ~08/04/23 wheel cahir #1 ea 08/22/23 02/26/24 09/05/23 Rx naloxone 4 mg/actuation nasal 4 mg intranasal Q3M PRN opioid 09/15/23 02/26/24 Unknown Rx spray (Narcan) overdose #2 ea cyclobenzaprine 5 mg tablet 5 mg PO TID PRN muscle spasm 30 02/26/24 02/26/24 Unknown Rx days #90 tabs hydrocodone 10 mg-acetaminophen 1 tab PO Q8H PRN pain 7 days #21 02/26/24 02/26/24 Unknown Rx 325 mg tablet tabs Back Brace #1 ea 03/04/24 03/04/24 Unknown Rx Allergies Allergy/AdvReac Type Severity Reaction Status Date / Time No Known Allergies Allergy Verified 03/04/24 10:56 PFSH Acute 2 PFSH: Social History Smoking and tobacco/nicotine status: unknown if used tobacco/nicotine Vitals/I&O/Wt Last Vital Signs Temp 98.3 F 03/09/24 14:56 Pulse 100 03/09/24 14:56 Resp 16 03/09/24 14:56 BP 181/95 03/09/24 14:56 Pulse Ox 98 03/09/24 14:56 O2 Del Method Room Air 03/09/24 14:56 Weight last 48 hrs Weight 98.43 kg Physical Exam 2 Narrative: Right-sided facial droop Upper face has been spared Right-sided facial droop Extremity weakness Awake and alert sitting in the bedside Hypertensive Currently on room air Pleasant cooperative at the bedside Currently on room air I do not see any rash Data 03/09/24 15:26 03/09/24 15:26 A&P Assessment and plan (1) Chan's palsy: (2) Facial droop: (3) Hypertensive urgency: Plan Chan's palsy Start steroids Requested MRI to rule out stroke No need to start antivirals Full code DVT prophylaxis added Follow back pain continue muscle relaxants opioids and gabapentin GI soft diet Does not have typical stroke related features No skin rash No family history of stroke Hypertensive urgency add lisinopril for now Patient smokes 1 pack/day and also smokes marijuana, added nicotine patch Attestations 2 Medical Necessity Statement*: Anticipating discharge within 48 hours 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
[2024-03-09] MEDS: predniSONE 20 mg Tablet 60 MG PO (18:11)
[2024-03-09] MEDS: HYDROcodone-acetaminophen 5-325 mg Tablet 1 TAB PO (19:08)
[2024-03-09] MEDS: meloxicam 7.5 mg tablet PO (19:09)
[2024-03-09] MEDS: enoxaparin 40 mg/0.4 mL Syringe SUBCUT (19:09)
[2024-03-09] MEDS: lisinopril 5 mg Tablet PO (19:09)
[2024-03-09] MEDS: gabapentin 300 mg Capsule PO (21:09)
[2024-03-10] MEDS: cyclobenzaprine 10 mg Tablet 5 MG PO (00:59)
[2024-03-10 04:00] VITALS: BP 124/78; PULSE 77; RESP 18; TEMP 36.6; O2SAT 95
[2024-03-10 05:25] VITALS: PULSE 67
[2024-03-10 06:18] LABS: Magnesium 1.9 mg/dL (1.7-2.3)
[2024-03-10 07:36] VITALS: BP 127/80; PULSE 73; RESP 15; TEMP 36.7; O2SAT 94
[2024-03-10] MEDS: predniSONE 20 mg Tablet 60 MG PO (08:52)
[2024-03-10] MEDS: lisinopril 5 mg Tablet PO (08:52)
[2024-03-10] MEDS: gabapentin 300 mg Capsule PO (08:52)
[2024-03-10] MEDS: meloxicam 7.5 mg tablet PO (08:52)
[2024-03-10] MEDS: nicotine 21 mg Patch 1 PATCH TRANSDERMA (08:53)
--- NOTE | 2024-03-10 09:30 | MR_ITS ---
WS: [id number] MRI HEAD WITHOUT CONTRAST TECHNIQUE: Sagittal T1, T2 axial, T2 axial FLAIR, axial and coronal T1 images, axial susceptibility w eighted imaging, axial diffusion weighted images, and coronal T2 images were obtained. CLINICAL INFORMATION: facial droop COMPARISON: CT head 03/09/2024 FINDINGS: No evidence of restricted diffusion to suggest acute ischemia. Ventricular system and basilar cistern s are patent. A few tiny foci of T2 hyperintensity in the periventricular and subcortical white matte r nonspecific in a patient of this age but can be seen with hypertension, diabetes, and migraine head aches. No significant parenchymal volume loss. Corpus callosum appears normal. Normal posterior fossa. Normal vascular flow voids at the skull base. No extra-axial fluid collection s. No evidence of mass or mass effect. Mild mucosal thickening in the paranasal sinuses. Partial opac ification of the LEFT frontoethmoidal recess. Trace mucosal thickening in the LEFT mastoid air cells. Normal posterior nasopharynx. No hemosiderin on the susceptibly weighted images. Normal optic chiasm and pituitary infundibulum. Te mporal lobes and hippocampal formations are normal in appearance. MR/MR head wo con* [id number] IMPRESSION: 1. No evidence of restricted diffusion to suggest acute ischemia. 2. Mild patchy supratentorial white matter changes nonspecific in a patient th is age but can be seen with hypertension, diabetes, and migraine headaches. 3. No hemosiderin on the susceptibly weighted images. 4. Mild inflammatory changes in the paranasal sinuses. 5. No other acute findings.
--- NOTE | 2024-03-10 10:28 | PC.CHAP ---
Pastoral Care Encounter/Spiritual Assessment Type of Contact [] Declined junior mechanical engineer visit [] Patient/Family/Request visit [] Outpatient visit [] Follow-up visit [] Physician referral [] Code/Alert [x] Routine visit [] Staff referral [] Actively dying [] Patient sleeping [x] Family support [] [] Out of room [] Palliative care [] [] Receiving care in room [] Pre-surgical visit [] Trauma [] Long length of stay [] ICU visit [] Other: Relational/Emotional Strength [x] Patient feels connected with others/family/visitors/staff [] Distress [] Loneliness/isolation [] Abandonment Spirituality of Patient [x] Person of Yvonne [] Attends Faith of their Yvonne [x] Believes in Prayer [] Reads Bible or Jew materials [] There are 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 [x] Prayer [x] Active listening [] Non-anxious presence [x] Spiritual/emotional support [] Crisis/trauma care [] Spiritual counseling [] Bereavement support [] Provided bereavement packet [] Provided Bible/devotional materials [] Provided toy/stuffed animal, coloring book to patient or family member [] Provided Communion [] Anointing/[place] [] Salvation [x] Completed spiritual assessment [] Other: Impact on Illness or Injury [] Angry [] Fearful [] Anxious [] Often cries [] Exhaustion [] Unable to work [] Unable to attend rastafarian [] Unable to walk/stand [] Unable to read [] Unable to drive [] Unable to eat/drink [] Unable to sleep [] Unable to be with family [] Patient intubated [] Other: Summary Time spent with patient 5 min
[2024-03-10 11:28] VITALS: BP 124/86; PULSE 82; RESP 15; TEMP 36.7; O2SAT 97
--- NOTE | 2024-03-10 11:55 | PM.DCS ---
Discharge Providers Date of Admission: 03/09/24 17:03 Date of Discharge: March 10, 2024 Attending Provider at Admission: Madiha Elizabeth MD Attending Provider at Discharge: Madiha Elizabeth MD Primary Care Provider: Jose Madsen MD Diagnoses at Discharge Discharge Diagnosis (1) Chan's palsy: Status: Acute (2) Facial droop: Status: Acute (3) Hypertensive urgency: Status: Resolved Reason for Visit Reason for Visit: Stroke like symptoms Hospital Course Hospital Course Patient presented to the hospital with hypertensive urgency along with a right-sided facial droop. MRI was obtained which ruled out a stroke. Tick panel was also sent. Patient denies any tick bites. He was diagnosed with Chan's palsy. Patient was discharged home on 60 mg prednisone x 5 days. He was also started on lisinopril 5 mg daily and asked to keep a blood pressure log sheet to take to his primary care doctor. Physical Exam Narrative: Right-sided facial droop present Extremity weakness Awake and alert sitting in the bedside Hypertensive Currently on room air Pleasant cooperative at the bedside Currently on room air I do not see any rash Discharge Data Studies Completed and Pending Completed Studies During Hospitalization Category Date Time Status CT head thrombolytic 20247 Stat Cat Scan 03/09/24 15:00 Completed CTA head neck [CT angio headneck* [id number]] Stat Cat Scan 03/09/24 15:25 Completed MR head wo con* [id number] Routine MRI 03/10/24 09:30 Completed Pending at discharge Category Date Time Status Tick Panel Urgent Lab 03/10/24 11:54 Ordered Radiology Impressions Head CT 03/09/24 15:00 IMPRESSION: Negative head CT. Similar noncontrast head CT since 08/24/2013 and 11/29/2012. Notified Leslie Barrera MD at 03/09/2024 3:16 PM. Head/Neck CTA 03/09/24 15:25 IMPRESSION: No intracranial large vessel arterial stenosis or occlusion. IMPRESSION: No significant cervical arterial stenosis or occlusion. REFERENCES: NASCET CRITERIA. The degree of stenosis in the cervical segment of the internal carotid artery is based on NASCET criteria. Normal is no stenosis. Mild is less than 50% stenosis. Moderate is 50-69% stenosis. Severe is 70% to 99% stenosis. Total occlusion is no detectable patent lumen. Head MRI 03/10/24 09:30 IMPRESSION: 1. No evidence of restricted diffusion to suggest acute ischemia. 2. Mild patchy supratentorial white matter changes nonspecific in a patient this age but can be seen with hypertension, diabetes, and migraine headaches. 3. No hemosiderin on the susceptibly weighted images. 4. Mild inflammatory changes in the paranasal sinuses. 5. No other acute findings. Laboratory Results WBC 10.44 10^3/uL (3.29-11.43) 03/09/24 15: RBC 5.66 10^6/uL (3.85-5.65) H 03/09/24 15: Hgb 17.00 g/dL (11.27-16.99) H 03/09/24 15: Hct 50.8 % (37-53) 03/09/24 15: MCV 89.8 fl (82-101) 03/09/24: MCH 30.0 pg (27-33) 03/09/24 15: MCHC 33.5 g/dL (30-55) 03/09/24 15: RDW 13.1 % (12.1-15.1) 03/09/24 15: Plt Count 280 10^3/cmm (157-399) 03/09/24 15: MPV 8.7 fL (7.4-10.4) 03/09/24 15: Neut % (Auto) 67.9 % 03/09/24: Lymph % (Auto) 22.5 % 03/09/24: [place] % (Auto) 7.0 % 03/09/24 15: Eos % (Auto) 1.2 % 03/09/24: Baso % (Auto) 0.9 % 03/09/24: Neut # (Auto) 7.09 10^3/uL (1.8-7.7) 03/09/24 15: Lymph # (Auto) 2.4 10^3/uL (0.8-4.8) 03/09/24 15: [place] # (Auto) 0.7 10^3/uL (0.2-0.9) 03/09/24 15:26 Eos # (Auto) 0.1 10^3/uL (0.0-0.8) 03/09/24 15:26 Baso # (Auto) 0.1 10^3/uL (0.0-0.1) 03/09/24 15:26 Nucleated RBC % (auto) 0 % 03/09/24 15: Nucleated RBCs # 0.0 /100WBC 03/09/24 15: PT 13.00 SECONDS (12.1-14.9) 03/09/24 15: INR 0.96 (0.8-1.2) 03/09/24 15: APTT 28.0 SECONDS (23.9-36.7) 03/09/24 15: Sodium 139 mmol/L (136-145) 03/09/24 15: Potassium 3.7 mmol/L (3.5-5.1) 03/09/24 15: Chloride 101 mmol/L (98-107) 03/09/24 15: Carbon Dioxide 28 mmol/L (22-29) 03/09/24 15:26 Anion Gap 13.7 (5-19) 03/09/24 15:26 BUN 16 mg/dL (6-20) 03/09/24 15: Creatinine 0.8 mg/dL (0.7-1.2) 03/09/24 15: GFR Calculation 111.3 mL/min (90-130) 03/09/24 15: Glucose 106 mg/dL (65-115) 03/09/24 15: POC Glucose 108 mg/dL (70-110) 03/09/24 15:09 Calculated Osmolality 290 mOsm/kg (285-295) 03/09/24 15:26 Calcium 8.7 mg/dL (8.5-10.5) 03/09/24 15: Magnesium 1.9 mg/dL (1.7-2.3) 03/10/24 05:14 Total Bilirubin 0.4 mg/dL (0.15-1.2) 03/09/24 15:26 AST 25 U/L (0-40) 03/09/24 15:26 ALT 23 U/L (0-41) 03/09/24 15:26 Alkaline Phosphatase 71 U/L (40-130) 03/09/24: Total Protein 7.0 g/dL (6.6-8.7) 03/09/24 15: Albumin 4.6 g/dL (3.5-5.2) 03/09/24 15: Globulin 2.4 g/dL (1.3-4.6) 03/09/24 15:26 Urine Color Yellow (Yellow) 03/09/24 16:20 Urine Appearance Clear (CLEAR) 03/09/24 16:20 Urine pH 7.0 (5-7) 03/09/24 16:20 Ur Specific [place] 1.028 (1.005-1.030) 03/09/24 16:20 Urine Protein Negative (Negative) 03/09/24 16:20 Urine Glucose (UA) Negative (Normal) 03/09/24 16:20 Urine Ketones Negative (Negative) 03/09/24 16:20 Urine Blood Negative (Negative) 03/09/24 16:20 Urine Nitrate Negative (Negative) 03/09/24 16:20 Urine Bilirubin Negative (Negative) 03/09/24 16:20 Urine Urobilinogen 0.2 mg/dL (Negative) 03/09/24 16:20 Ur Leukocyte Esterase Negative (Negative) 03/09/24 16:20 Urine RBC 0-2 /hpf (0-2) 03/09/24 16:20 Urine WBC 0-5 /hpf (0-5) 03/09/24 16:20 Ur Squamous Epith Cells 0-5 /hpf (0-5) 03/09/24 16:20 Amorphous Sediment Not Reportable 03/09/24 16:20 Urine Bacteria None seen /hpf (NONE) 03/09/24 16:20 Hyaline Casts 0-4 /lpf H 03/09/24 16:20 Urine Opiates Screen Positive ng/mL (Negative) H 03/09/24 16:20 Ur Barbiturates Screen Negative ng/mL (Negative) 03/09/24 16:20 Ur Phencyclidine Scrn Negative ng/mL (Negative) 03/09/24 16:20 Ur Amphetamines Screen Negative ng/mL (Negative) 03/09/24 16:20 U Benzodiazepines Scrn Negative ng/mL (Negative) 03/09/24 16:20 Urine Cocaine Screen Negative ng/mL (Negative) 03/09/24 16:20 U Marijuana (THC) Screen Positive ng/mL (Negative) H 03/09/24 16:20 Vitals Last Vital Signs Temp 98.1 F 03/10/24 07:36 Pulse 73 03/10/24 07:36 Resp 15 03/10/24 07:36 BP 127/80 03/10/24 07:36 Pulse Ox 94 03/10/24 07:36 O2 Del Method Room Air 03/10/24 07:36 Discharge Plan Discharge Patient Disposition: Home Condition: Stable Prescriptions: New prednisone 20 mg Tablet 60 mg PO DAILY 5 Days Qty: 15 0RF lisinopril 5 mg Tablet 5 mg PO DAILY Qty: 30 0RF Continued (DME) Back Brace See Rx Instructions .Route .MEDSUPPLY Qty: 1 0RF Rx Instructions: As directed gabapentin 300 mg capsule 300 mg PO TID Qty: 90 0RF meloxicam 15 mg tablet 15 mg PO DAILY Qty: 30 0RF Rx Instructions: Not to be taken with other NSAIDS (DME) wheel cahir See Rx Instructions .Route .MEDSUPPLY Qty: 1 0RF Rx Instructions: As directed cyclobenzaprine 5 mg tablet 5 mg PO TID PRN (Reason: muscle spasm) 30 Days Qty: 90 0RF naloxone [Narcan] 4 mg/actuation spray,non-aerosol 4 mg intranasal Q3M PRN (Reason: opioid overdose) Qty: 2 0RF Rx Instructions: spray 1 dose into ONE nostril; alternate nostrils w each dose until help arrives No Action hydrocodone-acetaminophen 10-325 mg tablet 1 tab PO Q8H PRN (Reason: pain) 7 Days Qty: 21 0RF Discharge Orders: Discharge Order (Routine); Ordered 03/10/24 Ordered By: Madiha Elizabeth Referrals: Jose Madsen MD [Primary Care Provider] - 03/17/24 8:45 am Discharge Diet: Cardiac Discharge Activity: Resume usual activity Patient Instructions: Lisinopril (By mouth), Prednisone (By mouth), Chan Palsy (DC), Opioid Safety Discharge Attestations Time Spent in Discharge Care*: less than 30 min Quality Metrics Clinical Quality Measures [ No reported AMI, CVA or VTE this stay] Coding Level of Care Code Acute Code for Chg Fwd 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
[2024-03-11 14:10] LABS: Lyme AB Screen <0.90 index
[2024-03-14 22:48] LABS: RMSF IGG NOT DETECTED; RMSF IGM NOT DETECTED
[2024-03-15 17:20] LABS: E. Chaffeensis AB IGG <1:64; E. Chaffeensis AB IGM <1:20
== END 2024-03-10 12:25 | disposition home or self-care (01) ==
LOC: ER 16:14 → MEDSURG 17:04
PROVIDERS: Internal Medicine; Admitting Provider Internal Medicine; Emergency Provider Emergency Medicine; PCP Family Medicine; Visit Provider Internal Medicine
DX: G51.0 Bell's palsy (principal); R29.810 Facial weakness; I16.0 Hypertensive urgency; F17.200 Nicotine dependence, unspecified, uncomplicated
CPT/HCPCS: 36415; 36416; 70450; 70496; 70498; 70551; 80053; 80306; 81001; 82962; 83735; 85025; 85610; 85730; 86618; 86666; 86757; 93005; 96372; 99285; G0378; J1650; J7512

== ENCOUNTER 2024-09-27 08:33 | Outpatient (CLI) | payer MEDICAID, SELFPAY ==
--- NOTE | 2024-09-27 08:45 | MR_ITS ---
WS: [id number] MRI CERVICAL SPINE NONCONTRAST HISTORY: M54.12 - Radiculopathy, cervical region, chronic neck pain. COMPARISON: Cervical spine 09/30/2023, prior MRI 12/31/2023 and radiograph 07/15/2024 Technique: Multiplanar, multisequence noncontrast imaging of the cervical spine. Mild straightening of the normal cervical lordosis. No acute marrow edema or fractures identified. Signal within the cervical cord is normal. Visualized posterior fossa is unremarkable. Craniocervical junction, C1 and C2 relationship, odontoid process and soft tissues are normal. C2-C3: Normal. C3-C4: Very minimal osteophytic ridging and a tiny LEFT foraminal osteophyte. No stenosis. C4-C5: Mild osteophytic ridging and disc bulging with a central disc protrusion encroaching upon the ventral thecal sac. Mild central stenosis. C5-C6: Annular disc bulging with a moderate central to LEFT paracentral disc protrusion effacing CSF on the LEFT and contacting the cervical cord. This disc protrusion was also present on the prior study from 12/31/2023. Reidentified is severe LEFT foraminal stenosis due to disc osteophyte complex. C6-C7: Tiny central disc protrusion. Mild foraminal stenosis and foraminal osteophytes. C7-T1: Normal. Paraspinal soft tissue are normal. MR/MR cervical spin wo con* [id number] IMPRESSION: 1. No acute cervical spine fracture or marrow edema. 2. No facet joint edema. 3. C5-6: Central to LEFT paracentral disc osteophyte effacing CSF and contacti ng the cervical cord. Similar to the prior study of 12/31/2023. Mild central with severe LEFT foraminal stenosis due to the disc osteophyte. 4. C4-5: Small central disc protrusion with mild central stenosis. 5. Small central disc protrusion at C6-7 with mild foraminal stenosis and fora rissa osteophytes.
== END 2024-09-27 08:34 | disposition home or self-care (01) ==
PROVIDERS: PCP Family Medicine; Visit Provider Anesthesiology Pain Medicine
DX: M54.12 Radiculopathy, cervical region (principal); M25.78 Osteophyte, vertebrae; M48.02 Spinal stenosis, cervical region; M50.221 Other cervical disc displacement at C4-C5 level; M50.323 Other cervical disc degeneration at C6-C7 level; M50.321 Other cervical disc degeneration at C4-C5 level; M50.322 Other cervical disc degeneration at C5-C6 level; M50.222 Other cervical disc displacement at C5-C6 level
CPT/HCPCS: 72141